=== PATIENT | female | born 1950 | race Hispanic/Latino ===

== ENCOUNTER 2017-12-11 08:00 | Outpatient (CLI) | payer MEDICARE | END 2017-12-11 08:01 | disposition home or self-care (01) | LOC: BICULT 08:00 | PROVIDERS: ATTEND Family Medicine | DX: E66.9 Obesity, unspecified (principal); K76.0 Fatty (change of) liver, not elsewhere classified | CPT/HCPCS: 76700 ==

== ENCOUNTER 2018-03-04 09:30 | Outpatient (CLI) | payer MEDICARE | END 2018-03-04 09:31 | disposition home or self-care (01) | LOC: BICMAMMO 09:30 | PROVIDERS: ATTEND Family Medicine | DX: Z12.31 Encounter for screening mammogram for malignant neoplasm of breast (principal) | CPT/HCPCS: 77063; 77067 ==

== ENCOUNTER 2018-03-17 13:14 | Outpatient (CLI) | payer MEDICARE | END 2018-03-17 13:15 | disposition home or self-care (01) | LOC: BICRAD 13:14 | PROVIDERS: ATTEND Family Medicine | DX: R93.8 Abnormal findings on diagnostic imaging of other specified body structures (principal); I70.0 Atherosclerosis of aorta | CPT/HCPCS: 71046 ==

== ENCOUNTER 2021-09-03 05:41 | Emergency (ER) | payer MEDICARE ==
[2021-09-03] MEDS ORDERED: Ondansetron PF 4 MG/2 ML Vial ONE (06:07)
[2021-09-03] MEDS ORDERED: Metoclopramide HCl 10 MG/2 ML VIAL ONE (06:07)
[2021-09-03] MEDS ORDERED: Lorazepam 2 MG/ML VIAL ONE (06:07)
[2021-09-03] MEDS ORDERED: diphenhydrAMINE 50 MG/ML VIAL ONE (06:07)
[2021-09-03] MEDS ORDERED: Meclizine HCl 25 MG TAB ONE (06:14)
== END 2021-09-03 07:19 | disposition home or self-care (01) ==
LOC: ERS 05:41
DX: H81.13 Benign paroxysmal vertigo, bilateral (principal); E78.5 Hyperlipidemia, unspecified; E78.00 Pure hypercholesterolemia, unspecified
CPT/HCPCS: 70450; 96374; 96375; J1200; J2060; J2405; J2765

== ENCOUNTER 2023-01-29 08:18 | Outpatient (CLI) | payer MEDICARE | END 2023-01-29 08:19 | disposition home or self-care (01) | LOC: RAD 08:18 | PROVIDERS: ATTEND Family Medicine | DX: R05.9 Cough, unspecified (principal) | CPT/HCPCS: 71046 ==

== ENCOUNTER 2023-09-24 10:09 | Outpatient (CLI) | payer MEDICARE | END 2023-09-24 10:10 | disposition home or self-care (01) | LOC: LABBT 10:09 | PROVIDERS: ATTEND Orthopaedic Surgery | DX: Z01.818 Encounter for other preprocedural examination (principal); M17.12 Unilateral primary osteoarthritis, left knee | CPT/HCPCS: 71046; 93005; 93010 ==

== ENCOUNTER 2023-09-28 05:49 | Inpatient (IN) | payer MEDICARE ==
[2023-09-24 11:04] LABS: Bilirubin Neg (Negative); Blood, Urine Negative (Negative); Clarity Clear (Clear); Glucose, Urine (Dipstick) Normal (Negative); Ketone, Urine Negative (Negative); Leukocyte 100 (Negative); Nitrite Negative (Negative); Protein, Urine (Dipstick) Negative (Neg-Trace); Specific Gravity, Urine 1.015 (1.005-1.030); Urobilinogen Normal mg/dL (Less than 2)
[2023-09-24 12:50] LABS: #Basophils 0.1 10x3/uL (0.0-0.2); #Eosinphils 0.4 10x3/uL (0.0-0.5); #Monocytes 0.5 10x3/uL (0.0-1.1); %Basophils 0.8 % (0.0-2.0); %Eosinophils 6.6 % (0.0-6.0); %Lymphocytes 52.7 % (18.0-47.0); %Monocytes 7.8 % (0.0-10.0); %Neutrophils 31.8 % (40.0-75.0); Hematocrit 41.5 % (34.9-44.5); Hemoglobin 13.1 g/dL (12.0-15.5); Mean Corpuscular HGB CONC 31.6 g/dL (32.0-36.0); Mean Corpuscular Hemoglobin 27.6 pg (27.0-33.0); Mean Corpuscular Volume 87.6 fl (81.6-98.3); Mean Platelet Volume 10.9 fl (7.4-10.4); Platelet Count 235 10x3/uL (150-450); RBC Distribution Width 13.4 % (11.5-14.5); Red Blood Cell (RBC) Count 4.74 10x6/uL (3.90-5.03); White Blood Cell (WBC) Count 6.4 10x3/uL (3.5-10.5)
[2023-09-24 13:15] LABS: Anion Gap 13 mmol/L (10-20); BUN (Urea Nitrogen) 15 mg/dL (9.8-20.1); Calc. Creatinine Clearance 0 mL/min (70-130); Calcium 9.4 mg/dL (7.8-10.44); Carbon Dioxide 27 mmol/L (23-31); Chloride 105 mmol/L (98-107); Estimated GFR 91; Glucose 99 mg/dL (83-110); Potassium 4.5 mmol/L (3.5-5.1); Sodium 140 mmol/L (136-145)
[2023-09-24 13:16] LABS: Prothrombin Time 10.7 sec (9.5-12.1)
[2023-09-28] MEDS ORDERED: Bupivacaine 0.25% HCL 30 ML VIAL ONE (06:29)
[2023-09-28] MEDS ORDERED: EPINEPHrine 1 MG/ML AMP ONE (06:29)
[2023-09-28] MEDS ORDERED: Bupivacaine PF 0.5% 30 ML VIAL ONE (06:44)
[2023-09-28] MEDS ORDERED: fentaNYL 50 mcg/mL 1 mL Vial ONE ×5 (06:44→10:47)
[2023-09-28] MEDS ORDERED: Midazolam HCl 2 mg/2 ml Vial ONE (06:44)
[2023-09-28] MEDS ORDERED: Tranexamic Acid 1,000 MG/10 ML VIAL ONE ×2 (06:48→09:34)
[2023-09-28] MEDS ORDERED: Sodium Chloride 0.9% 0 ML ONE (06:48)
[2023-09-28] MEDS ORDERED: Vancomycin (BATCH) 1.5 GM/300 ML BAG ONE (06:48)
[2023-09-28] MEDS ORDERED: CEFAZOLIN 2 GM VIAL ONE (06:55)
[2023-09-28] MEDS ORDERED: Sodium Chloride 0.9% 100 ML ONE (06:55)
[2023-09-28] MEDS ORDERED: Clindamycin/D5W 900 mg/50 ml Premix Bag ONE (07:20)
[2023-09-28] MEDS ORDERED: PROPOFOL 200 MG/20 ML VIAL ONE (07:35)
[2023-09-28] MEDS ORDERED: Lidocaine 1% PF 5 ML VIAL ONE (07:35)
[2023-09-28] MEDS ORDERED: Ondansetron PF 4 MG/2 ML Vial ONE (07:35)
[2023-09-28] MEDS ORDERED: Dexamethasone 20 MG/5 ML VIAL ONE (07:35)
[2023-09-28] MEDS ORDERED: Ketorolac Tromethamine 30 MG/ML VIAL ONE (07:35)
[2023-09-28] MEDS ORDERED: fentaNYL 50 mcg/mL 1 mL Vial SLOW IVP PRN (08:07)
[2023-09-28] MEDS ORDERED: oxyCODONE 5 MG TAB PO PRN ×2 (08:09)
[2023-09-28] MEDS ORDERED: Sevoflurane 250 ML INH ANEST BOTTLE ONE (08:14)
[2023-09-28] MEDS ORDERED: Promethazine HCl 25 MG/ML VIAL IM PRN ×2 (08:15→09:03)
[2023-09-28] MEDS ORDERED: Ropivacaine 0.2% 550 ML 550 ML NERVE BLCK SCH (08:15)
[2023-09-28] MEDS ORDERED: Zolpidem Tartrate 5 MG TAB PO PRN ×2 (08:15→09:03)
[2023-09-28] MEDS ORDERED: Ondansetron PF 4 MG/2 ML Vial IVP PRN ×2 (08:15→09:03)
[2023-09-28] MEDS ORDERED: diphenhydrAMINE 25 MG CAP PO PRN (09:03)
[2023-09-28] MEDS ORDERED: Acetaminophen 325 MG TAB PO PRN (09:03)
[2023-09-28] MEDS ORDERED: Tranexamic Acid 1,000 MG in Sodium Chloride 0.9% 100 ML IVPB SCH (09:15)
[2023-09-28] MEDS: Acetaminophen 325 MG TAB PO SCH ×3 (13:01→23:40)
[2023-09-28] MEDS: Sodium Chloride 0.9% 1,000 ML IV SCH ×3 (13:25→23:20)
[2023-09-28 13:39] VITALS: BMI 31.9
[2023-09-28] MEDS: Clindamycin/D5W 900 MG in Premix 1 BAG IVPB SCH ×2 (14:50→22:06)
[2023-09-28] MEDS ORDERED: Vancomycin 1.5 GM in Sodium Chloride 0.9% 250 ML 300 ML IVPB SCH (18:00)
[2023-09-28] MEDS: Senokot S 8.6-50 MG TAB PO SCH (21:56)
[2023-09-28] MEDS: Ferrous Gluconate 324 MG TAB PO SCH (21:56)
[2023-09-28] MEDS: Aspirin 81 mg Enteric Coated Tablet PO SCH (21:56)
[2023-09-29] MEDS: Sodium Chloride 0.9% 1,000 ML IV SCH ×2 (04:03→15:27)
[2023-09-29 05:18] LABS: Hematocrit 33.1 % (36.0-47.0); Hemoglobin 10.7 g/dL (12.0-16.0); Mean Corpuscular HGB CONC 32.3 g/dL (32.0-36.0); Mean Corpuscular Volume 89.7 fl (78.0-98.0); Mean Platelet Volume 10.8 fL (7.4-10.4); Platelet Count 199 10x3/uL (130-400); RBC Distribution Width 13.4 % (11.5-14.5); Red Blood Cell (RBC) Count 3.69 mill/uL (4.20-5.40); White Blood Cell (WBC) Count 11.7 10x3/uL (4.8-10.8)
[2023-09-29] MEDS: Acetaminophen 325 MG TAB PO SCH ×4 (06:05→22:23)
[2023-09-29] MEDS: Ferrous Gluconate 324 MG TAB PO SCH ×2 (09:32→20:41)
[2023-09-29] MEDS: Aspirin 81 mg Enteric Coated Tablet PO SCH ×2 (09:32→20:40)
[2023-09-29] MEDS: Amitriptyline HCl 25 MG TAB PO SCH (09:32)
[2023-09-29] MEDS: Multivitamin W/ Minerals 1 TAB PO SCH (09:32)
[2023-09-29] MEDS: Atorvastatin Calcium 20 MG TAB PO SCH (09:32)
[2023-09-29] MEDS: Senokot S 8.6-50 MG TAB PO SCH ×2 (09:32→20:40)
[2023-09-29] MEDS: traMADol HCl 50 MG TAB PO PRN ×2 (16:02→22:23)
[2023-09-29] MEDS: Ketorolac Tromethamine 30 MG/ML VIAL IVP SCH ×3 (17:33→19:15)
[2023-09-30 04:54] LABS: Hematocrit 34.4 % (36.0-47.0); Hemoglobin 11.2 g/dL (12.0-16.0); Mean Corpuscular HGB CONC 32.6 g/dL (32.0-36.0); Mean Corpuscular Volume 89.1 fl (78.0-98.0); Platelet Count 182 10x3/uL (130-400); RBC Distribution Width 14.1 % (11.5-14.5); Red Blood Cell (RBC) Count 3.86 mill/uL (4.20-5.40); White Blood Cell (WBC) Count 10.4 10x3/uL (4.8-10.8)
[2023-09-30] MEDS: Sodium Chloride 0.9% 1,000 ML IV SCH ×3 (07:52→23:58)
[2023-09-30] MEDS: Acetaminophen 325 MG TAB PO SCH ×4 (07:52→22:26)
[2023-09-30] MEDS: Amitriptyline HCl 25 MG TAB PO SCH (08:44)
[2023-09-30] MEDS: Senokot S 8.6-50 MG TAB PO SCH ×2 (08:44→19:59)
[2023-09-30] MEDS: Ferrous Gluconate 324 MG TAB PO SCH ×2 (08:45→19:59)
[2023-09-30] MEDS: Atorvastatin Calcium 20 MG TAB PO SCH (08:45)
[2023-09-30] MEDS: Aspirin 81 mg Enteric Coated Tablet PO SCH ×2 (08:45→19:59)
[2023-09-30] MEDS: Multivitamin W/ Minerals 1 TAB PO SCH (08:45)
[2023-09-30] MEDS: traMADol HCl 50 MG TAB PO PRN ×2 (08:48→19:59)
[2023-10-01 05:48] LABS: Hematocrit 34.9 % (36.0-47.0); Mean Corpuscular HGB CONC 31.5 g/dL (32.0-36.0); Mean Corpuscular Hemoglobin 28.2 pg (27.0-31.0); Mean Corpuscular Volume 89.5 fl (78.0-98.0); Mean Platelet Volume 10.9 fL (7.4-10.4); Platelet Count 201 10x3/uL (130-400); RBC Distribution Width 13.8 % (11.5-14.5); White Blood Cell (WBC) Count 9.5 10x3/uL (4.8-10.8)
[2023-10-01] MEDS: Acetaminophen 325 MG TAB PO SCH ×2 (05:54→11:27)
[2023-10-01] MEDS: Ferrous Gluconate 324 MG TAB PO SCH (09:03)
[2023-10-01] MEDS: Multivitamin W/ Minerals 1 TAB PO SCH (09:03)
[2023-10-01] MEDS: Senokot S 8.6-50 MG TAB PO SCH (09:03)
[2023-10-01] MEDS: Amitriptyline HCl 25 MG TAB PO SCH (09:03)
[2023-10-01] MEDS: Aspirin 81 mg Enteric Coated Tablet PO SCH (09:03)
[2023-10-01] MEDS: Atorvastatin Calcium 20 MG TAB PO SCH (09:03)
[2023-10-01 11:32] VITALS: BP 138/83; TEMP 98.3
[2023-10-01] MEDS ORDERED: FLU VACC QS2023(65UP)/MF59C/PF 60 MCG/0.5 ML SYRINGE IM ONE (15:15)
== END 2023-10-01 12:19 | disposition home or self-care (01) | DRG 470 ==
LOC: SDC 05:49 → SJJU 09:03 → OBSVTOIN 09-30 10:03
PROVIDERS: ADMIT Orthopaedic Surgery; ATTEND Orthopaedic Surgery
PROC: 0SRD0J9 Replacement of Left Knee Joint with Synthetic Substitute, Cemented, Open Approach (ICD-10-PCS; principal; 2023-09-28)
DX: M17.12 Unilateral primary osteoarthritis, left knee (principal); M23.92 Unspecified internal derangement of left knee; Z79.899 Other long term (current) drug therapy; G89.29 Other chronic pain; M54.50 Low back pain, unspecified; F32.A Depression, unspecified; Z98.890 Other specified postprocedural states; Z88.8 Allergy status to other drugs, medicaments and biological substances; Z88.5 Allergy status to narcotic agent
CPT/HCPCS: 36415; 80048; 81003; 85025; 85027; 85610; 86850; 86900; 86901; 87081; A4306; C1776; J0171; J1100; J1885; J2250; J2405; J2704; J2795; J3010; J3370; J3490; J7050; S0020

== ENCOUNTER 2024-05-06 09:35 | Outpatient (CLI) | payer MEDICARE | END 2024-05-06 09:36 | disposition home or self-care (01) | LOC: BICMAMMO 09:35 | PROVIDERS: ATTEND Family Medicine | DX: Z13.820 Encounter for screening for osteoporosis (principal); M25.572 Pain in left ankle and joints of left foot; M81.0 Age-related osteoporosis without current pathological fracture; Z78.0 Asymptomatic menopausal state | CPT/HCPCS: 77080 ==

== ENCOUNTER 2024-09-08 08:41 | Outpatient (CLI) | payer MEDICARE | END 2024-09-08 08:42 | disposition home or self-care (01) | LOC: BICMAMMO 08:41 | PROVIDERS: ATTEND Family Medicine | DX: Z12.31 Encounter for screening mammogram for malignant neoplasm of breast (principal) | CPT/HCPCS: 77063; 77067 ==

== ENCOUNTER 2024-11-14 10:15 | Emergency (ER) | payer MEDICARE ==
[2024-11-14] MEDS ORDERED: Acetaminophen 500 MG TAB ONE ×2 (10:52)
[2024-11-14] MEDS ORDERED: Cyclobenzaprine 10 MG TAB ONE (12:36)
== END 2024-11-14 12:40 | disposition home or self-care (01) ==
LOC: ERS 10:15
DX: M54.2 Cervicalgia (principal)
CPT/HCPCS: 72125; 93005